=== PATIENT | female | born 1995 | race American Indian/Alaskan Native ===

== ENCOUNTER 2016-12-23 03:34 | Emergency (ER) | payer MEDICAID, OTHER ==
[2016-12-23 03:48] VITALS: BP 112/62
[2016-12-23 04:17] LABS: Bacteria,Urine 1+ /HPF (Negative); Bilirubin,Urine NEG (Negative); Blood,Urine SM (Negative); Ketones,Urine NEG (Negative); Leukocyte Esterase,Urine LG (Negative); Nitrite,Urine NEG (Negative); Protein,Urine <15 mg/dL mg/dL (Negative); Urobilinogen,Urine < 2.0 mg/dL (<2.0)
[2016-12-23 04:18] LABS: WBC,Urine > 182.0 /HPF (0.0-6.0)
--- NOTE | 2016-12-23 07:26 | Emergency Department Report ---
ED Female HPI - General Chief complaint: Urogenital-Female Stated complaint: UTI Time Seen by Provider: 12/23/16 07:09 Source: patient Mode of arrival: Ambulatory Limitations: No Limitations - Related Data Home Medications Medication Instructions Recorded Confirmed Last Taken Doxylamine/Pyridoxine HCl 1 each PO TID 04/13/16 04/13/16 04/12/16 21:00 [Diclegis Dr 10-10 mg Tablet] 1 Omeprazole [Omeprazole] 1 tab PO BID 04/13/16 04/13/16 04/11/16 21:00 1 Previous Rx's Medication Instructions Recorded Last Taken Type HYDROcodone/APAP 5-325 [[place] 1 each PO Q6HR PRN #30 tablet 04/14/16 Unknown Rx 5/325] Ibuprofen [Motrin] 800 mg PO Q8HR PRN #60 tablet 04/14/16 Unknown Rx Allergies Allergy/AdvReac Type Severity Reaction Status Date / Time No Known Allergies Allergy Unverified 09/05/15 10:14 ED Review of Systems ROS: Stated complaint: UTI Other details as noted in HPI ED Past Medical Hx - Past Medical History Previous Medical History?: Yes Hx Hypertension: No Hx Heart Attack/AMI: No Hx Congestive Heart Failure: No Hx Diabetes: No Hx Deep Vein Thrombosis: No Hx Renal Disease: No Hx Sickle Cell Disease: No Hx Seizures: No Hx Asthma: Yes (prn pump) Hx COPD: No - Surgical History Past Surgical History?: Yes Hx Cholecystectomy: Yes - Social History Smoking Status: Never Smoker Substance Use Type: Alcohol - Medications Home Medications: Home Medications Medication Instructions Recorded Confirmed Last Taken Type Doxylamine/Pyridoxine HCl 1 each PO TID 04/13/16 04/13/16 04/12/16 21:00 History [Diclegis Dr 10-10 mg Tablet] 1 Omeprazole [Omeprazole] 1 tab PO BID 04/13/16 04/13/16 04/11/16 21:00 History 1 HYDROcodone/APAP 5-325 [[place] 1 each PO Q6HR PRN #30 tablet 04/14/16 Unknown Rx 5/325] Ibuprofen [Motrin] 800 mg PO Q8HR PRN #60 tablet 04/14/16 Unknown Rx ED Physical Exam - General Limitations: No Limitations ED Course Vital Signs 12/23/16 03:44 Temperature 98.4 F Pulse Rate 67 Respiratory 20 Rate Blood Pressure 112/62 O2 Sat by Pulse 99 Oximetry Critical care attestation.: If time is entered above; I have spent that time in minutes in the direct care of this critically ill patient, excluding procedure time. ED Disposition Condition: Stable Referrals: PRIMARY CARE, [Primary Care Provider] - 3-5 Days
[2016-12-23] MEDS ORDERED: MOTRIN PO ONE (07:27)
--- NOTE | 2016-12-23 08:15 | Emergency Department Report ---
Blank Doc - Documentation Documentation: Patient eloped from the ED at approximately 5 AM as per overnight twisting operator Chele , stated she had an errand to run. It is now 8:10 AM, I called the listed phone number under pt demographics and it went straight to voicemail. pt does have an abnormal UA consistent with the stated complaint in triage. However, as pt left 3 hours ago and is no longer present in ED and not answering her phone I cannot directly urge her to be treated. Pt eloped 3 hours ago. insurance salesperson Nikki and Dr. Bedolla made aware.
--- NOTE | 2016-12-23 08:28 | ED Elopement Review ---
ED Pt Elopement review - Results review Lab results: Laboratory Tests 12/23/16 03:57 Urine Color Yellow Urine Turbidity Clear Urine pH 7.0 Ur Specific [place] 1.006 Urine Protein <15 mg/dl Urine Glucose (UA) Neg Urine Ketones Neg Urine Blood Sm Urine Nitrite Neg Ur Reducing Substances Not Reportable Urine Bilirubin Neg Urine Ictotest Not Reportable Urine Urobilinogen < 2.0 Ur Leukocyte Esterase Lg Urine WBC (Auto) > 182.0 H Urine RBC (Auto) 4.0 U Epithel Cells (Auto) 1.0 Urine Bacteria (Auto) 1+ Urine HCG, Qual Negative - Call Back decision Pt Call Back Decision: Pt to F/U with PMD (patient should return to ER or follow up with PMD for uti)
== END 2016-12-23 08:34 | disposition left against medical advice (07) ==
LOC: ED 03:34
DX: R35.0 Frequency of micturition (principal); R10.30 Lower abdominal pain, unspecified; Z53.21 Procedure and treatment not carried out due to patient leaving prior to being seen by health care provider
CPT/HCPCS: 81001; 81025

== ENCOUNTER 2017-10-30 05:49 | Emergency (ER) | payer SELFPAY ==
[2017-10-30 06:10] VITALS: BP 108/55
[2017-10-30 08:16] LABS: Bacteria,Urine 2+ /HPF (Negative); Bilirubin,Urine NEG (Negative); Blood,Urine NEG (Negative); Color,Urine Yellow (Yellow); Hyaline Casts,Urine 1 /LPF; Mucus,Urine 2+ /HPF; Nitrite,Urine NEG (Negative); Protein,Urine <15 mg/dL mg/dL (Negative); Urobilinogen,Urine < 2.0 mg/dL (<2.0)
[2017-10-30 08:23] LABS: Alanine Aminotransferase 12 units/L (7-56); Albumin 4.2 g/dL (3.9-5); BUN/Creatinine Ratio 15; Basophils % (Auto) 0.1 % (0.0-1.8); Blood Urea Nitrogen 9 mg/dL (7-17); Calcium 8.8 mg/dL (8.4-10.2); Eosinophils # (Auto) 0.1 K/mm3 (0.0-0.4); Eosinophils % (Auto) 0.6 % (0.0-4.3); Hematocrit 39.4 % (30.3-42.9); Hemoglobin 12.6 gm/dl (10.1-14.3); Hemolysis Index 6; Lymphocytes % (Auto) 6.2 % (13.4-35.0); Mean Corpuscular HGB Conc 32 % (30-34); Mean Corpuscular Hemoglobin 29 pg (28-32); Mean Corpuscular Volume 90 fl (79-97); Monocytes # (Auto) 0.9 K/mm3 (0.0-0.8); Monocytes % (Auto) 5.5 % (0.0-7.3); Platelet Count 345 K/mm3 (140-440); Red Blood Count 4.38 M/mm3 (3.65-5.03); Red Cell Distribution Width 15.4 % (13.2-15.2)
[2017-10-30] MEDS ORDERED: ZOFRAN ODT PO ONE (10:04)
[2017-10-30] MEDS ORDERED: NACL 0.9% 1000 ML 1,000 ML IV ONE (12:30)
--- NOTE | 2017-10-30 12:30 | Emergency Department Report ---
ED Abdominal Pain HPI - General Chief Complaint: Abdominal Pain Stated Complaint: VOMITING, COLD SX Time Seen by Provider: 10/30/17 12:24 Source: patient, family Mode of arrival: Ambulatory Limitations: No Limitations - History of Present Illness Initial Comments: Patient care presented to the ED complaining of lower abdominal pain, nausea vomiting diarrhea for 2 weeks. She was given Zofran in triage area. She said last time she vomited was prior to coming to the emergency room. Pain is 6 out of 10 to lower abdomen and lower back. Denies any urinary frequency. Reports some urinary burning and no urgency. Denies any blood in urine. Denies any chest pain or shortness of breath. Denies any coughing. Denies any fever or chills. Denies any vaginal bleeding or discharge. Patient has a history of asthma and uses albuterol pump from time to time. She had her gallbladder removed. She says she has no primary care physician and has not been able to keep anything down. MD Complaint: abdominal pain, flank pain, other (nausea vomiting and diarrhea 2 weeks) Onset/Timin -: week(s) Location: [facility] Radiation: none Migration to: no migration Severity: moderate Severity scale (0 -10): 6 Quality: cramping Consistency: intermittent Improves With: nothing Worsens With: nothing Context: other (unknown) Associated Symptoms: nausea, vomiting, diarrhea (no diarrhea 2 days), dysuria. denies: fever, chills, constipation, hematemesis, hematochezia, melena, hematuria, anorexia, syncope Treatments Prior to Arrival: other ([id number] pain medicine) - Related Data LMP Date: 10/23/17 Home Medications Medication Instructions Recorded Confirmed Last Taken Doxylamine Succinate/Vit B6 1 each PO TID 04/13/16 04/13/16 04/12/16 21:00 [Diclegis Dr 10-10 mg Tablet] 1 Omeprazole [Omeprazole] 1 tab PO BID 04/13/16 04/13/16 04/11/16 21:00 1 Previous Rx's Medication Instructions Recorded Last Taken Type HYDROcodone/APAP 5-325 [[place] 1 each PO Q6HR PRN #30 tablet 04/14/16 Unknown Rx 5/325] Ciprofloxacin HCl [Ciprofloxacin 500 mg PO Q12HR #20 tab 10/30/17 Unknown Rx TAB] Ibuprofen [Motrin 800 MG tab] 800 mg PO Q8HR PRN #12 tablet 10/30/17 Unknown Rx Promethazine [Phenergan TAB] 25 mg PO Q6HR PRN #12 tab 10/30/17 Unknown Rx Allergies Allergy/AdvReac Type Severity Reaction Status Date / Time No Known Allergies Allergy Unverified 09/05/15 10:14 ED Review of Systems ROS: Stated complaint: VOMITING, COLD SX Other details as noted in HPI Comment: All other systems reviewed and negative Constitutional: no symptoms reported ENT: denies: throat pain Respiratory: no symptoms reported Cardiovascular: denies: chest pain, palpitations, dyspnea on exertion, edema, syncope, paroxysmal nocturnal dyspnea Gastrointestinal: abdominal pain, nausea, vomiting, diarrhea. denies: constipation, hematemesis, melena, hematochezia Genitourinary: dysuria. denies: urgency, frequency, hematuria, discharge, abnormal menses Musculoskeletal: back pain. denies: joint swelling, arthralgia, myalgia Skin: denies: rash Neurological: denies: headache ED Past Medical Hx - Past Medical History Previous Medical History?: Yes Hx Hypertension: No Hx Heart Attack/AMI: No Hx Congestive Heart Failure: No Hx Diabetes: No Hx Deep Vein Thrombosis: No Hx Renal Disease: No Hx Sickle Cell Disease: No Hx Seizures: No Hx Asthma: Yes (prn pump) Hx COPD: No - Surgical History Past Surgical History?: Yes Hx Cholecystectomy: Yes - Family History Family history: hypertension - Social History Smoking Status: Never Smoker Substance Use Type: None - Medications Home Medications: Home Medications Medication Instructions Recorded Confirmed Last Taken Type Doxylamine Succinate/Vit B6 1 each PO TID 04/13/16 04/13/16 04/12/16 21:00 History [[place] Dr 10-10 mg Tablet] 1 Omeprazole [Omeprazole] 1 tab PO BID 04/13/16 04/13/16 04/11/16 21:00 History 1 HYDROcodone/APAP 5-325 [[place] 1 each PO Q6HR PRN #30 tablet 04/14/16 Unknown Rx 5/325] Ciprofloxacin HCl [Ciprofloxacin 500 mg PO Q12HR #20 tab 10/30/17 Unknown Rx TAB] Ibuprofen [Motrin 800 MG tab] 800 mg PO Q8HR PRN #12 tablet 10/30/17 Unknown Rx Promethazine [Phenergan TAB] 25 mg PO Q6HR PRN #12 tab 10/30/17 Unknown Rx ED Physical Exam - General Limitations: No Limitations General appearance: alert, in no apparent distress - Head Head exam: Present: atraumatic, normocephalic, normal inspection - Eye Eye exam: Present: normal appearance, PERRL, EOMI. Absent: scleral icterus, conjunctival injection, periorbital swelling, periorbital tenderness Pupils: Present: normal accommodation - ENT ENT exam: Present: normal exam, normal orophraynx, mucous membranes moist - Neck Neck exam: Present: normal inspection, full ROM, other (no C-spine tenderness). Absent: tenderness, meningismus, lymphadenopathy, thyromegaly - Respiratory Respiratory exam: Present: normal lung sounds bilaterally. Absent: respiratory distress, chest wall tenderness, accessory muscle use - Cardiovascular Cardiovascular Exam: Present: regular rate, normal rhythm, normal heart sounds. Absent: systolic murmur, diastolic murmur - GI/Abdominal GI/Abdominal exam: Present: soft, normal bowel sounds. Absent: distended, tenderness, guarding, rebound, rigid, organomegaly, mass, bruit, pulsatile mass , hernia - Extremities Exam Extremities exam: Present: normal inspection, full ROM, normal capillary refill , other (no clubbing, cyanosis or edema. +2 pulses to all extremities and no neurovascular compromise). Absent: tenderness, pedal edema, joint swelling, calf tenderness - Back Exam Back exam: Present: normal inspection, full ROM, CVA tenderness (L), other ( patient ambulated without any difficulties). Absent: tenderness, CVA tenderness (R), muscle spasm, paraspinal tenderness, vertebral tenderness, rash noted - Neurological Exam Neurological exam: Present: alert, oriented X3, normal gait, reflexes normal. Absent: motor sensory deficit - Psychiatric Psychiatric exam: Present: normal affect, normal mood - Skin Skin exam: Present: warm, dry, intact, normal color. Absent: rash ED Course Vital Signs 10/30/17 10/30/17 10/30/17 06:07 13:07 14:04 Temperature 82 F L 98.9 F Pulse Rate 82 88 Respiratory 17 20 18 Rate Blood Pressure 108/55 O2 Sat by Pulse 99 100 Oximetry - Reevaluation(s) Reevaluation #1: 10/30/17 14:24 Patient given normal saline 1 L, Rocephin 1 g IV, Toradol 30 mg IV, she was given Zofran 4 mg ODT in triage area and additional Zofran 4 mg IV. Patient is without nausea with no episode of vomiting in ED room and she is able to tolerate oral liquids without any problems. Her pain is also controlled. ED Medical Decision Making - Lab Data Result diagrams: 10/30/17 07:50 10/30/17 07:50 Lab Results 10/30/17 10/30/17 10/30/17 Range/Units 07:50 07:50 07:50 WBC 16.6 H (4.5-11.0) K/mm3 RBC 4.38 (3.65-5.03) M/mm3 Hgb 12.6 (10.1-14.3) gm/dl Hct 39.4 (30.3-42.9) % MCV 90 (79-97) fl MCH 29 (28-32) pg MCHC 32 (30-34) % RDW 15.4 H (13.2-15.2) % Plt Count 345 (140-440) K/mm3 Lymph % (Auto) 6.2 L (13.4-35.0) % [place] % (Auto) 5.5 (0.0-7.3) % Eos % (Auto) 0.6 (0.0-4.3) % Baso % (Auto) 0.1 (0.0-1.8) % Lymph # 1.0 L (1.2-5.4) K/mm3 [place] # 0.9 H (0.0-0.8) K/mm3 Eos # 0.1 (0.0-0.4) K/mm3 Baso # 0.0 (0.0-0.1) K/mm3 Seg Neutrophils % 87.6 H (40.0-70.0) % Seg Neutrophils # 14.6 H (1.8-7.7) K/mm3 Sodium 141 (137-145) mmol/L Potassium 4.3 (3.6-5.0) mmol/L Chloride 103.9 (98-107) mmol/L Carbon Dioxide 25 (22-30) mmol/L Anion Gap 16 mmol/L BUN 9 (7-17) mg/dL Creatinine 0.6 L (0.7-1.2) mg/dL Estimated GFR > 60 ml/min BUN/Creatinine Ratio 15 % Glucose 105 H (65-100) mg/dL Calcium 8.8 (8.4-10.2) mg/dL Total Bilirubin 0.30 (0.1-1.2) mg/dL AST 13 (5-40) units/L ALT 12 (7-56) units/L Alkaline Phosphatase 57 (35-129) units/L Total Protein 7.2 (6.3-8.2) g/dL Albumin 4.2 (3.9-5) g/dL Albumin/Globulin Ratio 1.4 % Lipase (13-60) units/L HCG, Qual Negative (Negative) Urine Color (Yellow) Urine Turbidity (Clear) Urine pH (5.0-7.0) Ur Specific [place] (1.003-1.030) Urine Protein (Negative) mg/dL Urine Glucose (UA) (Negative) mg/dL Urine Ketones (Negative) mg/dL Urine Blood (Negative) Urine Nitrite (Negative) Urine Bilirubin (Negative) Urine Urobilinogen (<2.0) mg/dL Ur Leukocyte Esterase (Negative) Urine WBC (Auto) (0.0-6.0) /HPF Urine RBC (Auto) (0.0-6.0) /HPF U Epithel Cells (Auto) (0-13.0) /HPF Urine Bacteria (Auto) (Negative) /HPF Hyaline Casts /LPF Urine Mucus /HPF 10/30/17 10/30/17 Range/Units 07:50 Unknown WBC (4.5-11.0) K/mm3 RBC (3.65-5.03) M/mm3 Hgb (10.1-14.3) gm/dl Hct (30.3-42.9) % MCV (79-97) fl MCH (28-32) pg MCHC (30-34) % RDW (13.2-15.2) % Plt Count (140-440) K/mm3 Lymph % (Auto) (13.4-35.0) % [place] % (Auto) (0.0-7.3) % Eos % (Auto) (0.0-4.3) % Baso % (Auto) (0.0-1.8) % Lymph # (1.2-5.4) K/mm3 [place] # (0.0-0.8) K/mm3 Eos # (0.0-0.4) K/mm3 Baso # (0.0-0.1) K/mm3 Seg Neutrophils % (40.0-70.0) % Seg Neutrophils # (1.8-7.7) K/mm3 Sodium (137-145) mmol/L Potassium (3.6-5.0) mmol/L Chloride (98-107) mmol/L Carbon Dioxide (22-30) mmol/L Anion Gap mmol/L BUN (7-17) mg/dL Creatinine (0.7-1.2) mg/dL Estimated GFR ml/min BUN/Creatinine Ratio % Glucose (65-100) mg/dL Calcium (8.4-10.2) mg/dL Total Bilirubin (0.1-1.2) mg/dL AST (5-40) units/L ALT (7-56) units/L Alkaline Phosphatase (35-129) units/L Total Protein (6.3-8.2) g/dL Albumin (3.9-5) g/dL Albumin/Globulin Ratio % Lipase 47 (13-60) units/L HCG, Qual (Negative) Urine Color Yellow (Yellow) Urine Turbidity Clear (Clear) Urine pH 5.0 (5.0-7.0) Ur Specific [place] 1.027 (1.003-1.030) Urine Protein <15 mg/dl (Negative) mg/dL Urine Glucose (UA) Neg (Negative) mg/dL Urine Ketones Neg (Negative) mg/dL Urine Blood Neg (Negative) Urine Nitrite Neg (Negative) Urine Bilirubin Neg (Negative) Urine Urobilinogen < 2.0 (<2.0) mg/dL Ur Leukocyte Esterase Lg (Negative) Urine WBC (Auto) 14.0 H (0.0-6.0) /HPF Urine RBC (Auto) 5.0 (0.0-6.0) /HPF U Epithel Cells (Auto) 12.0 (0-13.0) /HPF Urine Bacteria (Auto) 2+ (Negative) /HPF Hyaline Casts 1 /LPF Urine Mucus 2+ /HPF Urine culture pending - Medical Decision Making ED course: Patient here with complaints of nausea vomiting and diarrhea and abdominal cramping or back pain for over 2 weeks. Physical findings for left CVA tenderness without any tenderness throughout abdomen. Patient vital signs are stable and she is afebrile. She was given Zofran 4 mg ODT in triage area which did not completely relieve her nausea. She was further given normal saline 1 L, Zofran 4 mg IV, Toradol 30 mg IV and Rocephin 1 g IV. Patient with pyelonephritis, nausea and vomiting and left flank pain. I discussed diagnosis and treatment plan with her and told her she will need to follow up at [facility] for primary care visit and if her symptoms worsen to return to the emergency room. In orally hydrated after IV fluid and tolerated well. She was discharged home with prescription for ciprofloxacin, Phenergan and Motrin Critical care attestation.: If time is entered above; I have spent that time in minutes in the direct care of this critically ill patient, excluding procedure time. ED Disposition Clinical Impression: Pyelonephritis, Left flank pain, Dysuria Nausea & vomiting Qualifiers: Vomiting type: unspecified Vomiting Intractability: non-intractable Qualified Code(s): R11.2 - Nausea with vomiting, unspecified Leukocytosis Qualifiers: Leukocytosis type: unspecified Qualified Code(s): D72.829 - Elevated white blood cell count, unspecified Abdominal pain Qualifiers: Abdominal location: lower abdomen, unspecified Qualified Code(s): R10.30 - Lower abdominal pain, unspecified Disposition: DC-01 TO HOME OR SELFCARE Is pt being admited?: No Does the pt Need Aspirin: No Condition: Stable Instructions: Acute Pyelonephritis (ED), Acute Nausea and Vomiting (ED), Leukocytosis (ED), Abdominal Pain (ED), Flank Pain (ED) Additional Instructions: Please increase your fluid intake to 2-3 L of orders and cranberry juice daily to keep fever down and prevent dehydration Please take Tylenol No. 3 for pain and/or fever but please do not drive or operate heavy machinery if you taken this medication. Take antibiotic as prescribed Take Phenergan for nausea and/or vomiting but please do not drive or operate heavy machinery or taken as this causes drowsiness Follow-up at [facility] in 2 days. Prescriptions: Ciprofloxacin HCl [Ciprofloxacin TAB] 500 mg PO Q12HR #20 tab Ibuprofen [Motrin 800 MG tab] 800 mg PO Q8HR PRN #12 tablet PRN Reason: Pain Promethazine [Phenergan TAB] 25 mg PO Q6HR PRN #12 tab PRN Reason: Nausea Referrals: PRIMARY CARE, [Primary Care Provider] - 2-3 Days [facility] [Outside] - 2-3 Days Forms: Work/School Release Form(ED)
[2017-10-30] MEDS ORDERED: REGLAN IV ONE (12:31)
[2017-10-30] MEDS ORDERED: ZOFRAN IV ONE (12:31)
[2017-10-30] MEDS ORDERED: TORADOL IV ONE (12:31)
[2017-10-30] MEDS ORDERED: ROCEPHIN IV ONE (13:27)
[2017-10-30] MEDS ORDERED: cefTRIAXone 1 GM in NACL 0.9% 20 ML IV ONE (13:30)
== END 2017-10-30 15:09 | disposition home or self-care (01) ==
LOC: ED 05:49
DX: N12 Tubulo-interstitial nephritis, not specified as acute or chronic (principal); D72.829 Elevated white blood cell count, unspecified
CPT/HCPCS: 36415; 80053; 81001; 83690; 84703; 85025; 87086; 96361; 96374; 96375; 99283; J1885; J2405; J7030; J0696; Q0162

== ENCOUNTER 2018-03-11 09:03 | Emergency (ER) | payer SELFPAY ==
[2018-03-11 09:55] VITALS: BP 107/56
[2018-03-11 10:10] LABS: Basophils # (Auto) 0.1 K/mm3 (0.0-0.1); Basophils % (Auto) 0.5 % (0.0-1.8); Eosinophils # (Auto) 0.1 K/mm3 (0.0-0.4); Eosinophils % (Auto) 0.7 % (0.0-4.3); Hematocrit 37.6 % (30.3-42.9); Hemoglobin 12.4 gm/dl (10.1-14.3); Lymphocytes # (Auto) 2.1 K/mm3 (1.2-5.4); Lymphocytes % (Auto) 19.8 % (13.4-35.0); Mean Corpuscular HGB Conc 33 % (30-34); Mean Corpuscular Hemoglobin 29 pg (28-32); Mean Corpuscular Volume 89 fl (79-97); Monocytes % (Auto) 9.2 % (0.0-7.3); Platelet Count 255 K/mm3 (140-440); Red Blood Count 4.23 M/mm3 (3.65-5.03); Red Cell Distribution Width 15.4 % (13.2-15.2)
[2018-03-11 10:40] LABS: Alanine Aminotransferase 9 units/L (7-56); BUN/Creatinine Ratio 20; Blood Urea Nitrogen 12 mg/dL (7-17); Hemolysis Index 6
[2018-03-11 11:09] LABS: Mucus,Urine FEW /HPF
[2018-03-11 11:19] LABS: Bilirubin,Urine NEG (Negative); Blood,Urine MOD (Negative); Color,Urine Yellow (Yellow); Protein,Urine <15 mg/dL mg/dL (Negative); Urobilinogen,Urine < 2.0 mg/dL (<2.0)
[2018-03-11] MEDS ORDERED: ZOFRAN ODT PO ONE (11:36)
--- NOTE | 2018-03-11 11:40 | Emergency Department Report ---
ED Abdominal Pain HPI - General Chief Complaint: Abdominal Pain Stated Complaint: ABCESS Time Seen by Provider: 03/11/18 11:34 Source: patient Mode of arrival: Ambulatory Limitations: No Limitations - History of Present Illness Initial Comments: Patient reports nausea and severe abdominal cramping with vaginal bleeding that started 2 weeks ago. She also complained of a boil on her left inner thigh. She currently has an IUD for control. MD Complaint: abdominal pain Onset/Timin -: week(s) Location: diffuse Radiation: none Migration to: no migration Severity: severe Severity scale (0 -10): 10 Quality: cramping Consistency: constant Improves With: nothing Worsens With: movement Context: other (unknown) Associated Symptoms: nausea. denies: vomiting, diarrhea, fever, chills, constipation, dysuria, hematemesis, hematochezia, melena, hematuria, anorexia, syncope Treatments Prior to Arrival: other (none) - Related Data LMP Date: 02/15/18 Home Medications Medication Instructions Recorded Confirmed Last Taken Doxylamine Succinate/Vit B6 1 each PO TID 04/13/16 04/13/16 04/12/16 21:00 [Reinal[address] Dr 10-10 mg Tablet] 1 Omeprazole 1 tab PO BID 04/13/16 04/13/16 04/11/16 21:00 1 Previous Rx's Medication Instructions Recorded Last Taken Type HYDROcodone/APAP 5-325 [[place] 1 each PO Q6HR PRN #30 tablet 04/14/16 Unknown Rx 5/325] Ciprofloxacin HCl [Ciprofloxacin 500 mg PO Q12HR #20 tab 10/30/17 Unknown Rx TAB] Ibuprofen [Motrin 800 MG tab] 800 mg PO Q8HR PRN #12 tablet 10/30/17 Unknown Rx Promethazine [Phenergan TAB] 25 mg PO Q6HR PRN #12 tab 10/30/17 Unknown Rx Clindamycin [Clindamycin CAP] 300 mg PO Q8H #30 cap 03/11/18 Unknown Rx HYDROcodone/APAP 5-325 [[place] 1 each PO Q6HR PRN #12 tablet 03/11/18 Unknown Rx 5/325] medroxyPROGESTERone ACETATE 10 mg PO QDAY #10 tablet 03/11/18 Unknown Rx [Provera] Allergies Allergy/AdvReac Type Severity Reaction Status Date / Time No Known Allergies Allergy Unverified 09/05/15 10:14 ED Review of Systems ROS: Stated complaint: ABCESS Other details as noted in HPI Constitutional: denies: chills, fever Eyes: denies: eye pain, eye discharge, vision change ENT: denies: ear pain, throat pain Respiratory: denies: cough, shortness of breath, wheezing Cardiovascular: denies: chest pain, palpitations Endocrine: no symptoms reported Gastrointestinal: abdominal pain, nausea. denies: vomiting, diarrhea, constipation, hematemesis, melena Genitourinary: abnormal menses, other (vaginal bleeding). denies: urgency, dysuria, discharge Musculoskeletal: denies: back pain, joint swelling, arthralgia Skin: denies: rash, lesions Neurological: denies: headache, weakness, paresthesias Psychiatric: denies: anxiety, depression Hematological/Lymphatic: denies: easy bleeding, easy bruising ED Past Medical Hx - Past Medical History Previous Medical History?: Yes Hx Hypertension: No Hx Heart Attack/AMI: No Hx Congestive Heart Failure: No Hx Diabetes: No Hx Deep Vein Thrombosis: No Hx Renal Disease: No Hx Sickle Cell Disease: No Hx Seizures: No Hx Asthma: Yes (prn pump) Hx COPD: No - Surgical History Past Surgical History?: Yes Hx Cholecystectomy: Yes Additional Surgical History: abcess on back - Social History Smoking Status: Former Smoker Substance Use Type: Marijuana - Medications Home Medications: Home Medications Medication Instructions Recorded Confirmed Last Taken Type Doxylamine Succinate/Vit B6 1 each PO TID 04/13/16 04/13/16 04/12/16 21:00 History [Stevie Dr 10-10 mg Tablet] 1 Omeprazole 1 tab PO BID 04/13/16 04/13/16 04/11/16 21:00 History 1 HYDROcodone/APAP 5-325 [[place] 1 each PO Q6HR PRN #30 tablet 04/14/16 Unknown Rx 5/325] Ciprofloxacin HCl [Ciprofloxacin 500 mg PO Q12HR #20 tab 10/30/17 Unknown Rx TAB] Ibuprofen [Motrin 800 MG tab] 800 mg PO Q8HR PRN #12 tablet 10/30/17 Unknown Rx Promethazine [Phenergan TAB] 25 mg PO Q6HR PRN #12 tab 10/30/17 Unknown Rx Clindamycin [Clindamycin CAP] 300 mg PO Q8H #30 cap 03/11/18 Unknown Rx HYDROcodone/APAP 5-325 [[place] 1 each PO Q6HR PRN #12 tablet 03/11/18 Unknown Rx 5/325] medroxyPROGESTERone ACETATE 10 mg PO QDAY #10 tablet 03/11/18 Unknown Rx [Provera] ED Physical Exam - General Limitations: No Limitations General appearance: alert, in no apparent distress - Head Head exam: Present: atraumatic, normocephalic - ENT ENT exam: Present: mucous membranes moist - Respiratory Respiratory exam: Present: normal lung sounds bilaterally. Absent: respiratory distress, wheezes, rales, rhonchi, stridor, chest wall tenderness, accessory muscle use, decreased breath sounds, prolonged expiratory - Cardiovascular Cardiovascular Exam: Present: regular rate, normal rhythm, normal heart sounds. Absent: systolic murmur, diastolic murmur, rubs, gallop - GI/Abdominal GI/Abdominal exam: Present: soft, tenderness (diffuse), normal bowel sounds. Absent: distended, guarding, rebound, rigid - External exam: Present: normal external exam Speculum exam: Present: vaginal bleeding (moderate) Bi-manual exam: Present: normal bi-manual exam - Expanded Exam Expanded Female exam: Present: foreign body (IUD noted in the cervix). Absent: vaginal laceration, tissue present in vagina, herpetic lesions, vulvar erythema , vulvar tenderness Speculum exam: Present: vaginal bleeding - Extremities Exam Extremities exam: Present: normal inspection, full ROM, normal capillary refill. Absent: tenderness, pedal edema, joint swelling - Expanded Lower Extremity Exam Left Hip exam: Present: normal inspection, full ROM Upper Leg exam: Present: full ROM, tenderness (1 cm follicle with induration to the left inner thigh, no fluctuance or erythema noted). Absent: swelling, ecchymosis, deformity, crepidus, dislocation, erythema Knee exam: Present: normal inspection, full ROM Lower Leg exam: Present: normal inspection, full ROM Ankle exam: Present: normal inspection, full ROM Foot/Toe exam: Present: normal inspection, full ROM Neuro vascular tendon exam: Present: no vascular compromise. Absent: pulse deficit, abnormal cap refill, motor deficit, sensory deficit, tendon deficit, extremity cold to touch, pallor, abnormal 2-point discrimination, decreased fine /light touch, foot drop, peroneal nerve deficit, significant pain with passive ROM of distal joint Gait: Positive: observed and normal - Back Exam Back exam: Present: normal inspection, full ROM. Absent: tenderness, CVA tenderness (R), CVA tenderness (L) - Neurological Exam Neurological exam: Present: alert, oriented X3, CN II-XII intact, normal gait, reflexes normal. Absent: motor sensory deficit - Psychiatric Psychiatric exam: Present: normal affect, normal mood - Skin Skin exam: Present: warm, dry, intact, normal color. Absent: rash ED Course Vital Signs 03/11/18 09:47 Temperature 98.5 F Pulse Rate 65 Respiratory 16 Rate Blood Pressure 107/56 O2 Sat by Pulse 100 Oximetry - Reevaluation(s) Reevaluation #1: 03/11/18 11:58 pelvic exam, antiemetic, laboratory and radiology studies ordered ED Medical Decision Making - Lab Data Result diagrams: 03/11/18 09:57 03/11/18 09:57 Lab Results 03/11/18 03/11/18 03/11/18 Range/Units 09:57 09:57 09:57 WBC 10.6 (4.5-11.0) K/mm3 RBC 4.23 (3.65-5.03) M/mm3 Hgb 12.4 (10.1-14.3) gm/dl Hct 37.6 (30.3-42.9) % MCV 89 (79-97) fl MCH 29 (28-32) pg MCHC 33 (30-34) % RDW 15.4 H (13.2-15.2) % Plt Count 255 (140-440) K/mm3 Lymph % (Auto) 19.8 (13.4-35.0) % Frontier % (Auto) 9.2 H (0.0-7.3) % Eos % (Auto) 0.7 (0.0-4.3) % Baso % (Auto) 0.5 (0.0-1.8) % Lymph # 2.1 (1.2-5.4) K/mm3 Frontier # 1.0 H (0.0-0.8) K/mm3 Eos # 0.1 (0.0-0.4) K/mm3 Baso # 0.1 (0.0-0.1) K/mm3 Seg Neutrophils % 69.8 (40.0-70.0) % Seg Neutrophils # 7.4 (1.8-7.7) K/mm3 Sodium 138 (137-145) mmol/L Potassium 4.4 (3.6-5.0) mmol/L Chloride 101.5 (98-107) mmol/L Carbon Dioxide 26 (22-30) mmol/L Anion Gap 15 mmol/L BUN 12 (7-17) mg/dL Creatinine 0.6 L (0.7-1.2) mg/dL Estimated GFR > 60 ml/min BUN/Creatinine Ratio 20 % Glucose 96 (65-100) mg/dL Calcium 9.0 (8.4-10.2) mg/dL Total Bilirubin 0.20 (0.1-1.2) mg/dL AST 12 (5-40) units/L ALT 9 (7-56) units/L Alkaline Phosphatase 55 (35-129) units/L Total Protein 7.3 (6.3-8.2) g/dL Albumin 4.0 (3.9-5) g/dL Albumin/Globulin Ratio 1.2 % HCG, Qual Negative (Negative) Urine Color (Yellow) Urine Turbidity (Clear) Urine pH (5.0-7.0) Ur Specific [place] (1.003-1.030) Urine Protein (Negative) mg/dL Urine Glucose (UA) (Negative) mg/dL Urine Ketones (Negative) mg/dL Urine Blood (Negative) Urine Nitrite (Negative) Ur Reducing Substances Urine Bilirubin (Negative) Urine Ictotest Urine Urobilinogen (<2.0) mg/dL Ur Leukocyte Esterase (Negative) Urine WBC (Auto) (0.0-6.0) /HPF Urine RBC (Auto) (0.0-6.0) /HPF U Epithel Cells (Auto) (0-13.0) /HPF Urine Mucus /HPF //18 Range/Units 10:33 WBC (4.5-11.0) K/mm3 RBC (3.65-5.03) M/mm3 Hgb (10.1-14.3) gm/dl Hct (30.3-42.9) % MCV (79-97) fl MCH (28-32) pg MCHC (30-34) % RDW (13.2-15.2) % Plt Count (140-440) K/mm3 Lymph % (Auto) (13.4-35.0) % Frontier % (Auto) (0.0-7.3) % Eos % (Auto) (0.0-4.3) % Baso % (Auto) (0.0-1.8) % Lymph # (1.2-5.4) K/mm3 Frontier # (0.0-0.8) K/mm3 Eos # (0.0-0.4) K/mm3 Baso # (0.0-0.1) K/mm3 Seg Neutrophils % (40.0-70.0) % Seg Neutrophils # (1.8-7.7) K/mm3 Sodium (137-145) mmol/L Potassium (3.6-5.0) mmol/L Chloride (98-107) mmol/L Carbon Dioxide (22-30) mmol/L Anion Gap mmol/L BUN (7-17) mg/dL Creatinine (0.7-1.2) mg/dL Estimated GFR ml/min BUN/Creatinine Ratio % Glucose (65-100) mg/dL Calcium (8.4-10.2) mg/dL Total Bilirubin (0.1-1.2) mg/dL AST (5-40) units/L ALT (7-56) units/L Alkaline Phosphatase (35-129) units/L Total Protein (6.3-8.2) g/dL Albumin (3.9-5) g/dL Albumin/Globulin Ratio % HCG, Qual (Negative) Urine Color Yellow (Yellow) Urine Turbidity Clear (Clear) Urine pH 6.0 (5.0-7.0) Ur Specific [place] 1.023 (1.003-1.030) Urine Protein <15 mg/dl (Negative) mg/dL Urine Glucose (UA) Neg (Negative) mg/dL Urine Ketones Neg (Negative) mg/dL Urine Blood Mod (Negative) Urine Nitrite Neg (Negative) Ur Reducing Substances Not Reportable Urine Bilirubin Neg (Negative) Urine Ictotest Not Reportable Urine Urobilinogen < 2.0 (<2.0) mg/dL Ur Leukocyte Esterase Tr (Negative) Urine WBC (Auto) 4.0 (0.0-6.0) /HPF Urine RBC (Auto) 7.0 (0.0-6.0) /HPF U Epithel Cells (Auto) 2.0 (0-13.0) /HPF Urine Mucus Few /HPF Microbiology 03/11/18 11:47 Vaginal Wet Prep - Final No yeast seen <20% clue cells seen No trichomoniasis seen Vital Signs 03/11/18 09:47 Temperature 98.5 F Pulse Rate 65 Respiratory 16 Rate Blood Pressure 107/56 O2 Sat by Pulse 100 Oximetry - Radiology Data Radiology results: image reviewed HISTORY: diffuse abdominal pain TECHNIQUE: Abdomen ultrasound. PRIORS: None currently available. FINDINGS: Liver: Unremarkable. No distinct lesions. Gallbladder: Prior cholecystectomy. Common bile duct measures 2.1 mm and is within normal limits. Pancreas: Provided images are unremarkable. Kidneys: 11.2 and 11.2 cm right and left kidneys. Right renal cortex measures 1.3 cm. Left renal cortex measures 1.7 cm. Punctate echogenic foci within the right kidney may represent a stone or prominent pelvic fat measuring 5 mm. No hydronephrosis. Left kidney is unremarkable. Spleen: Unremarkable. 8.4 cm. Aorta measures 1.2 cm proximally. Images of the IVC are unremarkable. No free fluid. IMPRESSION: Right renal stone. No hydronephrosis. EXAM: US PELVIC COMPLETE HISTORY: vaginal bleeding TECHNIQUE: Transabdominal and transvaginal pelvic ultrasound. PRIORS: None currently available. FINDINGS: Uterus: 10.2 x 4.4 x 7.3 cm. IUD is in the lower uterine segment/cervix. Retroflex. Endometrium: 22.7 mm. Thick. Heterogeneous. Echogenic. No distinct lesions. Right ovary: 2.7 x 2.7 x 2.4 cm. Mildly complex cyst measures 1.4 x 1.2 cm. Flow is present around the cyst and within the ovary. Left ovary: 3.2 x 1.3 x 1.5 cm. Within normal limits. Flow is present. No adnexal lesions. No significant free fluid. IMPRESSION: Thick heterogeneous echogenic endometrium. No distinct lesions but further workup is recommended if clinically indicated. IUD in the lower uterine segment/cervix. Complex right ovarian cyst. Differential diagnosis includes involuting corpus luteal cyst, hemorrhagic cyst, or cystic tumor. Former 2 favored. Short-term interval follow-up is recommended to document resolution. - Medical Decision Making During the course of ED, antiemetic, laboratory and radiology studies were ordered. Laboratory studies were unremarkable. The imaging study revealed right renal stone. No hydronephrosis. Also, IUD in the lower uterine segment/cervix. Complex right ovarian cyst. Differential diagnosis includes involuting corpus luteal cyst, hemorrhagic cyst, or cystic tumor. Examination was discussed with Dr. Diehl. Patient was sent home with prescriptions for [place], Clindamycin and Provera, instructions to follow up with [employer], she verbalized understanding - Differential Diagnosis Vaginal Bleeding, Abdominal Pain, Folliculitis Critical care attestation.: If time is entered above; I have spent that time in minutes in the direct care of this critically ill patient, excluding procedure time. ED Disposition Clinical Impression: Metrorrhagia, Folliculitis Abdominal pain Qualifiers: Abdominal location: generalized Qualified Code(s): R10.84 - Generalized abdominal pain Disposition: TO HOME OR SELFCARE Is pt being admited?: No Does the pt Need Aspirin: No Condition: Stable Instructions: Dysfunctional Uterine Bleeding (ED), Folliculitis (ED), Abdominal Pain (ED) Additional Instructions: Take medication as directed. No drinking or driving while taking medications. Follow up with the selective referral given at discharge Prescriptions: Clindamycin [Clindamycin CAP] 300 mg PO Q8H #30 cap HYDROcodone/APAP 5-325 [[place] 5/325] 1 each PO Q6HR PRN #12 tablet PRN Reason: Pain medroxyPROGESTERone ACETATE [Provera] 10 mg PO QDAY #10 tablet Referrals: RITIKA GOMEZ MD [Primary Care Provider] - 3-5 Days EDER WRIGHT MD [Staff Physician] - 3-5 Days LESLIE ESCOBAR MD [Staff Physician] - 3-5 Days ALFREDO FAN CNM [Advanced Practice Nurse] - 3-5 Days Forms: Work/School Release Form(ED) Time of Disposition: 14:14
--- NOTE | 2018-03-11 13:33 | Ultrasound Report ---
FINAL REPORT EXAM: US ABDOMEN COMPLETE HISTORY: diffuse abdominal pain TECHNIQUE: Abdomen ultrasound. PRIORS: None currently available. FINDINGS: Liver: Unremarkable. No distinct lesions. Gallbladder: Prior cholecystectomy. Common bile duct measures 2.1 mm and is within normal limits. Pancreas: Provided images are unremarkable. Kidneys: 11.2 and 11.2 cm right and left kidneys. Right renal cortex measures 1.3 cm. Left renal cortex measures 1.7 cm. Punctate echogenic foci within the right kidney may represent a stone or prominent pelvic fat measuring 5 mm. No hydronephrosis. Left kidney is unremarkable. Spleen: Unremarkable. 8.4 cm. Aorta measures 1.2 cm proximally. Images of the IVC are unremarkable. No free fluid. IMPRESSION: Right renal stone. No hydronephrosis.
--- NOTE | 2018-03-11 13:39 | Ultrasound Report ---
FINAL REPORT EXAM: US PELVIC COMPLETE HISTORY: vaginal bleeding TECHNIQUE: Transabdominal and transvaginal pelvic ultrasound. PRIORS: None currently available. FINDINGS: Uterus: 10.2 x 4.4 x 7.3 cm. IUD is in the lower uterine segment/cervix. Retroflex. Endometrium: 22.7 mm. Thick. Heterogeneous. Echogenic. No distinct lesions. Right ovary: 2.7 x 2.7 x 2.4 cm. Mildly complex cyst measures 1.4 x 1.2 cm. Flow is present around the cyst and within the ovary. Left ovary: 3.2 x 1.3 x 1.5 cm. Within normal limits. Flow is present. No adnexal lesions. No significant free fluid. IMPRESSION: Thick heterogeneous echogenic endometrium. No distinct lesions but further workup is recommended if clinically indicated. IUD in the lower uterine segment/cervix. Complex right ovarian cyst. Differential diagnosis includes involuting corpus luteal cyst, hemorrhagic cyst, or cystic tumor. Former 2 favored. Short-term interval follow-up is recommended to document resolution.
== END 2018-03-11 14:56 | disposition home or self-care (01) ==
LOC: ED 09:03
DX: R10.84 Generalized abdominal pain (principal); N92.1 Excessive and frequent menstruation with irregular cycle; L73.9 Follicular disorder, unspecified; J45.909 Unspecified asthma, uncomplicated; F12.10 Cannabis abuse, uncomplicated; Z87.891 Personal history of nicotine dependence; Z90.49 Acquired absence of other specified parts of digestive tract
CPT/HCPCS: 36415; 76700; 76830; 76856; 80053; 81001; 84703; 85025; 87210; 87591; Q0162